=== PATIENT | female | born 1985 | race Caucasian/White ===

== ENCOUNTER → 2019-10-29 10:55 | Outpatient (BNVA) | payer SELFPAY | PROVIDERS: Family Provider Nurse Practitioner; PCP Nurse Practitioner; Visit Provider Nurse Practitioner Family | DX: J02.9 Acute pharyngitis, unspecified (principal); Z68.22 Body mass index [BMI] 22.0-22.9, adult | CPT/HCPCS: 87071; 87880 ==

== ENCOUNTER → 2022-08-22 09:30 | Outpatient (BNVA) | payer BC, MEDICAID, SELFPAY | PROVIDERS: Family Provider Nurse Practitioner; PCP Family Medicine; Visit Provider Family Medicine | DX: Z01.419 Encounter for gynecological examination (general) (routine) without abnormal findings (principal) | CPT/HCPCS: 87624 ==